=== PATIENT | male | born 1960 | race Caucasian/White ===

== ENCOUNTER 2019-10-23 20:31 | Observation (INO) | payer OTHER ==
--- NOTE | 2019-10-23 20:43 | PDOC ---
History of Present Illness - General Chief Complaint: Pain, Acute Stated Complaint: PAIN History Source: Patient Exam Limitations: No Limitations - History of Present Illness Initial Comments: 10/23/19 20:42 Ashwin Barboza is a 59M with PMH HTN presenting with left groin pain. Patient was at home resting in bed when he suddenly had an acute onset pain in his left groin that is exacerbated by movement of his leg. Worse overnight, constant into today. Went to urgent care, given Flexeril and Aleve, did not improve symptoms. Denies recent trauma, bone problems, numbness/tingling, or weakness of the leg, but does not want to move it because of the pain. Right leg unaffected, denies lower back pain. Has never had problem like this before. Denies osteoporosis or arthritis. No prior injury or surgeries. Denies fever/chills/nausea/vomiting/diarrhea. No chest pain, SOB, palpitations, abd pain, urinary symptoms. Only PMH is HLD on a statin. Denies alcohol/drugs/tobacco. Past History - Medical History Allergies/Adverse Reactions: Allergies Allergy/AdvReac Type Severity Reaction Status Date / Time No Known Allergies Allergy Verified 10/23/19 20:42 Review of Systems - Review of Systems Able to Perform ROS?: Yes Constitutional: No: Symptoms Reported HEENTM: No: Symptoms Reported Respiratory: No: Symptoms reported Cardiac (ROS): No: Symptoms Reported ABD/GI: No: Symptoms Reported : No: Symptoms Reported Musculoskeletal: Yes: Joint Pain Integumentary: No: Symptoms Reported Neurological: No: Symptoms reported Endocrine: No: Symptoms Reported Hematologic/Lymphatic: No: Symptoms Reported All Other Systems: Reviewed and Negative *Physical Exam - Physical Exam General Appearance: Yes: Nourished, Appropriately Dressed, Thin, Other (in NAD). No: Apparent Distress HEENT: positive: EOMI, MEÑO, Normal Voice, Symmetrical, Pharynx Normal. negative: Scleral Icterus (R), Scleral Icterus (L), Pharyngeal Erythema, Tonsillar Exudate, Tonsillar Erythema Neck: positive: Trachea midline, Supple. negative: Tender, Rigid, Lymphadenopathy (R), Lymphadenopathy (L), Tender lateral, Tender midline Respiratory/Chest: positive: Lungs Clear, Normal Breath Sounds. negative: Chest Tender, Respiratory Distress, Accessory Muscle Use, Crackles, Rales, Rhonchi, Stridor, Wheezing Cardiovascular: positive: Regular Rhythm, Regular Rate. negative: Murmur Gastrointestinal/Abdominal: positive: Normal Bowel Sounds, Flat, Soft. negative: Tender, Organomegaly, Pulsatile Mass, Protuberent, Distended, Guarding, Rebound, Hernia Male Genitalia: positive: normal genitalia. negative: discharge, testicular tenderness, testicular mass, inguinal hernia, hernia, CVAT Musculoskeletal: positive: Normal Inspection. negative: CVA Tenderness, CVA Tenderness (R), CVA Tenderness (L) Extremity: positive: Normal Capillary Refill, Normal Inspection, Normal Range of Motion, Pelvis Stable. negative: Tender, Delayed Capillary Refill, Pedal Edema, Swelling, Inflammation Integumentary: positive: Normal Color, Dry, Warm Neurologic: positive: coupon manifest clerk II-XII NML intact, Fully Oriented, Alert, Normal Mood/Affect, Normal Response, Other (RLE neurovascular intact. LLE 5/5 motor to ankle/knee, no loss of sensation to light touch, pain with passive flexion at hip, unable to lift at left hip 2/2 pain, pulses intact.). negative: Motor Strength 5/5, Numbness, Sensory Deficit ED Treatment Course - LABORATORY CBC & Chemistry Diagram: 10/23/19 21:22 10/23/19 21:22 Medical Decision Making - Medical Decision Making 10/23/19 21:44 Patient presents with acute onset L hip/groin pain without trauma or risk factors for AVN or osteonecrosis. Also reports mild hand pain prior that has resolved, possibly sign of rheum disorder. Ddx includes hip fx, osteonecrosis, AVN. Getting XR left hip/pelvis/lumbar for evaluation. Getting labs for evaluation of possible metabolic/rheum disturbance including CBC/CMP/ESR/CRP/Lyme/UA/UC. ECG shows NSR with HR 94, QTc 410, no DAMIAN/D or TWI. 10/23/19 21:52 Labs notable for: - WBC 12.8 - ESR 25 - CRP 6.9 - CMP WNL - UA clean 10/23/19 22:17 Labs WNL, slightly elevated inflammatory markers. XR unremarkable. Giving Toradol for pain control and will re-evaluate. 10/23/19 22:57 Pain not improved at all. Scrotal exam unremarkable. Ordering CTA AP with BLE runoff for examination of vascular cause of hip pain and evaluation of the left hip and tibia. 10/24/19 01:57 CT angiography of the abdomen and pelvis: The abdominal aorta is patent. Negative for abdominal aortic aneurysm or di ssection. Atherosclerotic changes with mural plaque seen in the distal aorta. The major visceral vessels emanating from the abdominal aorta appear patent. The bilateral common iliac arteries are patent. However, there are atherosclerotic changes as well as chronic appearing bilateral common iliac artery dissections. The bilateral external iliac arteries are patent. Note made of an L3-4 disc protrusion. Right lower extremity: Right common femoral artery is patent with mild atherosclerotic changes., The superficial femoral artery, and popliteal artery are patent without stenosis occlusion dissection or aneurysm. Peroneal and posterior tibial runoff are identified. The anterior tibial artery appears to be occluded in its midportion. Therefore, there is poor visualization of the right dorsalis pedis. Left lower extremity: Left common femoral artery is patent with mild atherosclerotic changes. Left superficial femoral artery and popliteal artery are also patent without stenosis occlusion dissection or aneurysm. 2 vessel runoff via the peroneal and anterior tibial artery are noted. The posterior tibial artery appears to be occluded in its midportion. Left lobe liver cysts noted. Osseous structures are intact. 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 Discussed case with Dr. Concepcion with Imaging physician relations manager. Patient still having too much pain to walk despite Toradol and acetaminophen. Patient needs further evaluation for hip pain and likely physical therapy for bursitis vs. MSK pathology. Contacting PMD Dr. Zoya Nguyen for admission. 10/24/19 02:[address] Valenzuela for admission to Med/Surg under Dr. Zoya Nguyen. Pending admission at this time. Discharge - Discharge Information Problems reviewed: Yes Clinical Impression/Diagnosis: Acute pain of left hip Condition: Fair - Admission Yes - Follow up/Referral Referrals: Zoya Nguyen MD [Primary Care Provider] - - Patient Discharge Instructions - Post Discharge Activity
[2019-10-23] MEDS ORDERED: ACETAMINOPHEN 325 MG TABLET (FP) PO ONE (20:56)
[2019-10-23] MEDS ORDERED: ACETAMINOPHEN 325 MG TABLET (FP) ONE (21:06)
[2019-10-23 21:39] LABS: BASO % 0.3 % (0-2.0); EOS % 0.6 % (0-4.5); HEMATOCRIT 43.1 % (35.4-49); HEMOGLOBIN 14.1 GM/dL (11.7-16.9); LYMPH % 19.6 % (8-40); MCH 27.2 pg (25.7-33.7); MCHC 32.7 g/dl (32.0-35.9); MEAN CELL VOLUME 83.3 fl (80-96); MEAN PLT VOLUME 9.1 fl (7.5-11.1); MONO % 12.2 % (3.8-10.2); NEUT % 67.3 % (42.8-82.8); PLATELET COUNT 268 K/MM3 (134-434); RBC 5.17 M/mm3 (4.00-5.60); RDW 14.1 % (11.9-15.9); WHITE BLOOD COUNT 12.8 K/mm3 (4.0-10.0)
[2019-10-23 22:01] LABS: PH,URINE 7.5 (5.0-8.0); URINE APPEARANCE CLEAR; URINE BILIRUBIN NEGATIVE (NEGATIVE); URINE COLOR YELLOW; URINE GLUCOSE (UA) NEGATIVE (NEGATIVE); URINE KETONE NEGATIVE (NEGATIVE); URINE LEUK ESTERASE NEGATIVE (NEGATIVE); URINE NITRITE NEGATIVE (NEGATIVE); URINE PROTEIN NEGATIVE (NEGATIVE); URINE UROBILINOGEN 0.2 mg/dL (0.2-1.0)
--- NOTE | 2019-10-23 22:07 | PDOC ---
Documentation entered by Jody Chávez SCRIBE, acting as scribe for Karoline Cerno DO. Karoline Ceron DO: This documentation has been prepared by the kylahibe, Jody Chávez SCRIBE, under my direction and personally reviewed by me in its entirety. I confirm that the documentation accurately reflects all work, treatment, procedures, and medical decision making performed by me. Attending Attestation - Resident Resident Name: Richard Dickinson - ED Attending Attestation I have performed the following: I have examined & evaluated the patient, The case was reviewed & discussed with the resident, I agree w/resident's findings & plan, Exceptions are as noted - HPI HPI: 10/23/19 21:23 The patient is a 59-year-old male with a past medical history significant for HLD who presents to the emergency department via EMS with left hip pain since 10:00 pm yesterday. The patient reports yesterday around 10:00 pm he had an acute onset of stabbing, left hip pain that is aggravated with the movement of the hip. The patient reports following up at urgent care this morning for the pain was prescribed Flexeril and Aleve, no imaging was done. The patient reports taking Flexeril, without relief. Denies numbness or tingling. Denies recent fall, trauma, or injury to the hip, back, or legs. Denies back pain. Denies recent bug bite or tick bite. Denies having any pets at home. Denies chest pain, fever, chills, shortness of breath, abdominal pain. Denies prior similar pain. - Physicial Exam PE: 10/23/19 21:24 Constitutional: Awake, alert, oriented. No acute distress. Head: Normocephalic. Atraumatic Eyes: PERRL. EOMI. Conjunctivae are not pale. ENT: Mucous membranes are moist and intact. Posterior pharynx without exudate or erythema. Uvula midline. Neck: Supple. Full ROM. No lymphadenopathy. Cardiovascular: Regular rate. Regular rhythm. +tachycardic, S1, S2 regular. Distal pulses are 2+ and symmetric. Pulmonary/Chest: No evidence of respiratory distress. Clear to auscultation bilaterally No wheezing, rales or rhonchi. Abdominal: Soft and nondistended. There is no tenderness. No rebound, guarding or rigidity. Good bowel sounds. Back: No C, T, or L spine tenderness, No paraspinal tenderness. No CVA tenderness. Musculoskeletal: +acute left hip pain with active and passive range of motion. No tenderness to the hip itself, only pain with movement. No leg edema. No cyanosis. No clubbing. Full range of motion in all other extremities. No calf tenderness. Radial/pedal pulses are intact and 2+ bilaterally Skin: Skin is warm and dry. No petechiae. No purpura. Neurological: Alert and oriented to person, place, and time. Cranial nerves II-XII are grossly intact. Normal speech. Psychiatric: Good eye contact. Normal interaction, affect and behavior. - Medical Decision Making 10/23/19 21:49 a/p: 59yo male with L hip pain -no trauma -pain with passive and active rom -no pain with palpation of the joint, no warmth, redness, ttp, only pain with ROM -no rashes -will send labs, xrays -pt unable to ambulate -will medicate for pain -will monitor and reassess 10/23/19 22:37 pt still with pain will add toradol xrays without acute fx on wet read labs reviewed, elevated esr/crp 10/23/19 22:50 pt still with pain despite toradol pt denies scrotal pain still with acute L hip pain pt with acute L hip and groin pain will send for cta 10/24/19 01:35 pt pending cta, but will need admission for inability to ambulate and L hip pain Heart Score/ECG Review - ECG Intrepretation Comment:: 10/23/19 22:06 sinus at 94, nl axis, nl interval, no acute st/t wave findings Discharge - Discharge Information Problems reviewed: Yes Clinical Impression/Diagnosis: Acute pain of left hip Condition: Fair - Admission Yes - Follow up/Referral Referrals: Zoya Nguyen MD [Primary Care Provider] - - Patient Discharge Instructions - Post Discharge Activity
[2019-10-23 22:09] LABS: ALBUMIN 3.7 g/dl (3.4-5.0); BLOOD UREA NITROGEN 11.4 mg/dL (7-18); CALCIUM 8.5 mg/dL (8.5-10.1); CREATININE 1.3 mg/dL (0.55-1.3); TOT PROT 7.2 g/dl (6.4-8.2)
[2019-10-23] MEDS ORDERED: KETOROLAC TROMETHAMINE 30 MG/1 ML VIAL IVPUSH ONE (22:13)
[2019-10-23] MEDS ORDERED: KETOROLAC TROMETHAMINE 30 MG/1 ML VIAL ONE (22:14)
[2019-10-23 22:17] LABS: BILIRUBIN,TOTAL 0.6 mg/dL (0.2-1)
[2019-10-23 22:30] LABS: ERYTHROCYTE SEDIMENTATION RATE 25 mm/hr (0-20)
--- NOTE | 2019-10-24 09:23 | EKG ---
Test Reason : Blood Pressure : / mmHG Vent. Rate : 094 BPM Atrial Rate : 094 BPM P-R Int : 134 ms QRS Dur : 074 ms QT Int : 328 ms P-R-T Axes : 064 -08 047 degrees QTc Int : 410 ms NORMAL SINUS RHYTHM NORMAL ECG NO PREVIOUS ECGS AVAILABLE Confirmed by Rodrigo Cole MD ([id number]) on 10/24/2019 9:22:30 AM Referred By: Confirmed By:Rodrigo Cole MD
[2019-10-24] MEDS ORDERED: CYCLOBENZAPRINE HCL 10 MG TABLET (FP) PO PRN (09:44)
[2019-10-24] MEDS ORDERED: NAPROXEN 500 MG TABLET ONE (10:05)
[2019-10-24] MEDS ORDERED: CYCLOBENZAPRINE HCL 10 MG TABLET (FP) ONE (10:06)
[2019-10-24] MEDS ORDERED: PANTOPRAZOLE 40 MG TABLET ONE (10:08)
[2019-10-24] MEDS: NAPROXEN 500 MG TABLET PO SCH ×2 (10:12→21:30)
[2019-10-24] MEDS: PANTOPRAZOLE 20 MG TABLET PO SCH ×2 (10:12→21:30)
--- NOTE | 2019-10-24 10:55 | HP ---
DATE OF ADMISSION: 10/24/2019 HISTORY OF PRESENT ILLNESS: This is a 59-year-old [place] male known to me for some time known to have hyperlipidemia on atorvastatin, came to the emergency room last night with complaints of severe pain and difficulty in lifting left hip/left leg. He got Toradol injection this morning and is still complaining of severe pain left hip. His CT of the aorta: No aortic dissection. Some chronic changes noted in the aortofemoral area of the distal aorta. X-rays of the hip and lumbosacral spines are negative. SOCIAL HISTORY: with children. He is a smoker, smokes 2 to 3 cigarettes a day for many years. PHYSICAL EXAMINATION: Vital Signs: BP 122/80, pulse 110, temperature 97. HEENT: Unremarkable. Neck: Supple. No JVD. Lungs: Clear. Heart: S1, S2 normal. No S3, S4. Abdomen: Soft. Musculoskeletal: Legs: No edema. Range of motion of left hip is restricted. Leg raising test is positive on the left side. Right side is normal. LABORATORY REPORTS: WBC 12.8, hemoglobin 14.1, platelet 268. Chemistry: Electrolytes are normal. Blood sugar random 146. C-reactive protein is 6.9. Urine is negative. COVID result is pending. Lyme titer was done which is pending. X-ray of the lumbar spine was negative. IMPRESSION: 1. Sciatica back pain. 2. Hyperlipidemia. PLAN: Admit to the hospital. Bedrest. Orthopedic consult, Dr. Briceño. Will give him analgesics and muscle relaxant. Will evaluate. Dorothy [id number]
[2019-10-24 11:47] VITALS: BMI 20.9
--- NOTE | 2019-10-24 12:13 | CONSULT ---
- Consultation REQUESTING PROVIDER: CONSULT REQUEST: We have been asked to surgically evaluate this patient for left hip/groin pain. PCP:Zoya Nguyen HISTORY OF PRESENT ILLNESS: 59 yo male with a history of Hyperlipidemia and smoking. 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 The pain began abruptly after getting up from this position. He denies any h/o previous pain like this or back pain. He denies any masses to the groin. No dysuria, moving his bowels without difficulty. No fevers. No complaints of numbness or tingling to his LE b/l. No pain to LE with ambulation/rest. Left groin pain increased with ambulation. The pain has improved since admission after taking NSAIDs and was able to ambulate from chair to bed. No h/o diabetes. History taken via the intrepter phone #[phone]. PMHx: Hyperlipidemia PSHx: denies Social HX: smokes 2 to 3 cigarettes per day for 20 years Allergies Allergy/AdvReac Type Severity Reaction Status Date / Time No Known Allergies Allergy Verified 10/23/19 20:42 REVIEW OF SYSTEMS: CONSTITUTIONAL: Absent: fever, chills NEUROLOGIC: Absent: paresthesias, tingling to Left lower ext PHYSICAL EXAM: GENERAL: Awake, alert, and fully oriented, in no acute distress. LUNGS: Clear to auscultation bilat anteriorly. HEART: Regular rate and rhythm. ABDOMEN: Soft, nontender, not distended, normoactive bowel sounds, no guarding, no rebound, no masses. No masses to the groin. LOWER EXTREMITIES: RLE 2+ DP/PT pulses, warm, well-perfused. No calf tenderness. No peripheral edema. LLE: +2 DP pulse(palpable) +1 PT with doppler. Warm, well- perfused. No calf tenderness or peripheral edema. +2 femoral/popliteal pulses b/l. BACK: No midline/paraspinal tenderness NEUROLOGICAL: Normal speech, gait not observed. PSYCH: Cooperative. Good eye contact. Appropriate mood and affect. Vital Signs Temperature 98.6 F 10/24/19 11:38 Pulse Rate 73 10/24/19 11:38 Respiratory Rate 16 10/24/19 11:38 Blood Pressure 136/73 10/24/19 11:38 O2 Sat by Pulse Oximetry (%) 100 10/24/19 11:38 Lab Results WBC 12.8 K/mm3 (4.0-10.0) H 10/23/19 21:22 RBC 5.17 M/mm3 (4.00-5.60) 10/23/19 21:22 Hgb 14.1 GM/dL (11.7-16.9) 10/23/19 21:22 Hct 43.1 % (35.4-49) 10/23/19 21:22 MCV 83.3 fl (80-96) 10/23/19 21:22 MCHC 32.7 g/dl (32.0-35.9) 10/23/19 21:22 RDW 14.1 % (11.9-15.9) 10/23/19 21:22 Plt Count 268 K/MM3 (134-434) 10/23/19 21:22 Sodium 136 mmol/L (136-145) 10/23/19 21:22 Potassium 4.0 mmol/L (3.5-5.1) 10/23/19 21:22 Chloride 104 mmol/L (98-107) 10/23/19 21:22 Carbon Dioxide 23 mmol/L (21-32) 10/23/19 21:22 Anion Gap 9 MMOL/L (8-16) 10/23/19 21:22 BUN 11.4 mg/dL (7-18) 10/23/19 21:22 Creatinine 1.3 mg/dL (0.55-1.3) 10/23/19 21:22 Random Glucose 146 mg/dL (74-106) H 10/23/19 21:22 Calcium 8.5 mg/dL (8.5-10.1) 10/23/19 21:22 Left hips xray: no actue pathology Lumbar back xray: no acute pathology CT scan with IV Contrast: normal abd aorta. RLE-chronic iliac artery dissection. Patent femoral/deep femoral/SFA artery. patent trifurcation proximally. AT patent to mid-portion. peroneal to ankle and posterior tibial artery patent LLE-common femoral/deep artery patent. Trifurcation patent. Peroneal and posterior tibial artery patent to distal calf. Anterior tibial artery-patent Problem List - Problems (1) Left groin pain Assessment/Plan: Pt without any evidence of acute periperal vascular ischemia. His groin pain appears to be related to possible strain injury. His CTA reveals some distal disease to his left foot which is also evidence with his physical exam, diminished PT pulses. No evidence of ischemia/claudication/or wounds. He does smoke 2 to 3 cigarettes daily for many years Recommend smoking cessation F/u as needed for any vascular needs with Ciarra Wells in his office Pain management as per the primary team D/w Dr. Wells and he agrees with the above treatment plan. Problems reviewed: Yes Code(s): R10.32 - LEFT LOWER QUADRANT PAIN
[2019-10-24] MEDS: CYCLOBENZAPRINE HCL 10 MG TABLET (FP) PO PRN (17:54)
[2019-10-24] MEDS ORDERED: PT OWN MED DRAWER 7, Y5N ONE (20:50)
[2019-10-25] MEDS ORDERED: PT OWN MED DRAWER 7, Y5N ONE (09:01)
[2019-10-25] MEDS: NAPROXEN 500 MG TABLET PO SCH (09:02)
[2019-10-25] MEDS: PANTOPRAZOLE 20 MG TABLET PO SCH (09:03)
--- NOTE | 2019-10-25 09:25 | PN ---
Progress Note, Physician Chief Complaint: Lt hip pain History of Present Illness: Dr Camp vascular surgery consult appreciated CT LS spine no disc herniations or nerve compressions Mild DJD present - Current Medication List Current Medications: Active Medications Cyclobenzaprine HCl (Flexeril -) 10 mg PO BID PRN PRN Reason: MUSCLE SPASM Last Admin: 10/24/19 17:54 Dose: 10 mg Documented by: Naproxen (Naprosyn -) 500 mg PO BID [facility] Last Admin: 10/25/19 09:02 Dose: 500 mg Documented by: Pantoprazole Sodium (Protonix -) 20 mg PO BID [facility] Last Admin: 10/25/19 09:03 Dose: 20 mg Documented by: - Objective Vital Signs: Vital Signs Temperature 97.8 F 10/25/19 06:00 Pulse Rate 74 10/25/19 06:00 Respiratory Rate 20 10/25/19 06:13 Blood Pressure 112/71 10/25/19 06:00 O2 Sat by Pulse Oximetry (%) 99 10/25/19 06:13 Constitutional: Yes: No Distress Eyes: Yes: WNL HENT: Yes: WNL, Tonsillar Exudate Cardiovascular: Yes: WNL Respiratory: Yes: WNL Gastrointestinal: Yes: Normal Bowel Sounds ...Rectal Exam: Yes: Deferred Musculoskeletal: Yes: Back Pain Integumentary: Yes: WNL ...Motor Strength: WNL Psychiatric: Yes: Alert Labs: CBC, BMP 10/23/19 21:22 10/23/19 21:22 - ....Imaging Cat Scan: Report Reviewed Assessment/Plan DC home Continue present trt Rest at home for few days Will see in the office in 1 week
[2019-10-25] MEDS: CYCLOBENZAPRINE HCL 10 MG TABLET (FP) PO PRN (10:29)
[2019-10-25 10:39] VITALS: BP 132/75; PULSE 82; TEMP 98.2
== END 2019-10-25 11:39 | disposition home or self-care (01) ==
LOC: JER 20:31 → INTOOBSV 10-24 02:13 → JERBED 10-24 02:13 → J7W 10-24 10:49
PROVIDERS: ADMIT Internal Medicine; ATTEND Internal Medicine
PROC: 3E033NZ Introduction of Analgesics, Hypnotics, Sedatives into Peripheral Vein, Percutaneous Approach (ICD-10-PCS; principal; 2019-10-24)
DX: M25.552 Pain in left hip (principal); E78.5 Hyperlipidemia, unspecified; I10 Essential (primary) hypertension; R00.0 Tachycardia, unspecified; Z72.0 Tobacco use
CPT/HCPCS: 36415; 71046-TC-FY; 72100-TC-FY; 72131-TC; 73523-TC-FY; 75635-TC; 80053; 81003; 82550; 85025; 85651; 86140; 86618; 87086; 93005; 93010; 96374; 99285-25; G0378; U0003

== ENCOUNTER 2023-05-18 17:12 | Inpatient (IN) | payer OTHER ==
[2023-05-18] MEDS ORDERED: ALBUTEROL SO4 2.5/IPRATROPIUM 0.5 INH SOL 3 ML VIAL.NEB. NEB ONE ×5 (17:46→21:42)
[2023-05-18] MEDS ORDERED: methylPREDNISolone NA SUCC 125 MG/2 ML VIAL ONE ×2 (18:06→18:08)
[2023-05-18] MEDS ORDERED: ACETAMINOPHEN INJECTION 100 ML IVPB ONE (18:06)
[2023-05-18] MEDS: ACETAMINOPHEN 1000 MG/100 ML BAG IVPB ONE (18:13)
[2023-05-18] MEDS: methylPREDNISolone NA SUCC 125 MG/2 ML VIAL IVPUSH ONE (18:22)
[2023-05-18 18:32] LABS: VENOUS BASE EXCESS -2.1 mmol/L (-2-2); VENOUS PCO2 46.9 mmHg (38-52); VENOUS PH 7.332 (7.310-7.410)
[2023-05-18 18:40] LABS: BASO % 0.3 % (0-2.0); EOS % 1.6 % (0-4.5); HEMATOCRIT 40.6 % (35.4-49); HEMOGLOBIN 12.9 GM/dL (11.7-16.9); LYMPH % 18.5 % (8-40); MCH 26.9 pg (25.7-33.7); MCHC 31.8 g/dl (32.0-35.9); MEAN CELL VOLUME 84.5 fl (80-96); MEAN PLT VOLUME 9.3 fl (7.5-11.1); MONO % 10.9 % (3.8-10.2); NEUT % 68.7 % (42.8-82.8); PLATELET COUNT 292 10^3/uL (134-434); RBC 4.81 M/mm3 (4.00-5.60); RDW 13.6 % (11.9-15.9)
[2023-05-18 18:43] LABS: INR 1.02 (0.83-1.09); PROTHROMBIN TIME (PATIENT) 11.8 SEC (9.7-13.0)
[2023-05-18 18:46] LABS: ACTIVATED PTT 26.7 SECONDS (25.2-36.5)
[2023-05-18 18:56] LABS: POTASSIUM 4.2 mmol/L (3.5-5.1)
[2023-05-18 18:57] LABS: CALCIUM 8.6 mg/dL (8.5-10.1)
[2023-05-18 18:59] LABS: BLOOD UREA NITROGEN 10.5 mg/dL (7-18); MAGNESIUM 2.2 mg/dL (1.8-2.4)
[2023-05-18 19:02] LABS: CREATININE 1.4 mg/dL (0.55-1.3); PHOSPHOROUS 2.1 mg/dL (2.5-4.9)
[2023-05-18 19:03] LABS: BILIRUBIN,TOTAL 0.5 mg/dL (0.2-1); TOT PROT 7.5 g/dl (6.4-8.2)
[2023-05-18] MEDS: LACTATED RINGERS SOLUTION 1000 ML INFUS.BAG IV ONE (19:14)
[2023-05-18] MEDS: ALBUTEROL SO4 2.5/IPRATROPIUM 0.5 INH SOL 3 ML VIAL.NEB. NEB SCH (21:39)
[2023-05-19] MEDS ORDERED: methylPREDNISolone NA SUCC 40 MG/1 ML VIAL ONE ×2 (01:10→09:48)
[2023-05-19] MEDS ORDERED: ALBUTEROL SO4 2.5/IPRATROPIUM 0.5 INH SOL 3 ML VIAL.NEB. NEB ONE ×4 (01:10→11:51)
[2023-05-19] MEDS: methylPREDNISolone NA SUCC 40 MG/1 ML VIAL IVPUSH SCH (01:24)
[2023-05-19] MEDS: ALBUTEROL SO4 2.5/IPRATROPIUM 0.5 INH SOL 3 ML VIAL.NEB. NEB SCH (01:24)
[2023-05-19] MEDS: BUDESONIDE/FORMETEROL FUMARATE 160/4.5 mcg INHALER IH SCH (01:24)
[2023-05-19] MEDS: SODIUM CHLORIDE 1,000 ML IV SCH ×2 (05:20→10:01)
[2023-05-19 05:21] LABS: PH,URINE 5.5 (5.0-8.0); URINE APPEARANCE CLEAR; URINE BILIRUBIN NEGATIVE (NEGATIVE); URINE COLOR YELLOW; URINE GLUCOSE (UA) 3+ (NEGATIVE); URINE KETONE TRACE (NEGATIVE); URINE LEUK ESTERASE NEGATIVE (NEGATIVE); URINE NITRITE NEGATIVE (NEGATIVE); URINE PROTEIN NEGATIVE (NEGATIVE); URINE UROBILINOGEN 0.2 mg/dL (0.2-1.0)
[2023-05-19 07:55] LABS: BASO % 0.2 % (0-2.0); LYMPH % 13.5 % (8-40); MCH 28.2 pg (25.7-33.7); MCHC 33.4 g/dl (32.0-35.9); MEAN CELL VOLUME 84.5 fl (80-96); MEAN PLT VOLUME 9.2 fl (7.5-11.1); MONO % 3.7 % (3.8-10.2); NEUT % 82.6 % (42.8-82.8); PLATELET COUNT 272 10^3/uL (134-434); RBC 4.26 M/mm3 (4.00-5.60); RDW 13.3 % (11.9-15.9); WHITE BLOOD COUNT 9.6 K/mm3 (4.0-10.0)
[2023-05-19 08:24] LABS: LACTIC ACID 6.3 mmol/L (0.4-2.0)
[2023-05-19 08:31] LABS: CHOLESTEROL 150 mg/dL (50-200)
[2023-05-19 08:32] LABS: ALBUMIN 2.8 g/dl (3.4-5.0); BLOOD UREA NITROGEN 13.3 mg/dL (7-18); CALCIUM 8.7 mg/dL (8.5-10.1); LDL CHOLESTEROL (ONLY SJRH) 96 mg/dL (5-100)
[2023-05-19 08:33] LABS: MAGNESIUM 2.2 mg/dL (1.8-2.4)
[2023-05-19 08:34] LABS: CREATININE 1.4 mg/dL (0.55-1.3); HDL CHOLESTEROL 35 mg/dL (40-60); PHOSPHOROUS 2.7 mg/dL (2.5-4.9)
[2023-05-19 08:36] LABS: BILIRUBIN,TOTAL 0.5 mg/dL (0.2-1); TOT PROT 7.2 g/dl (6.4-8.2)
[2023-05-19] MEDS: INSULIN ASPART SLIDING SCALE (NOVOLOG) 1 VIAL SQ SCH (08:37)
[2023-05-19] MEDS: SODIUM CHLORIDE 1,000 ML IV STA (08:45)
[2023-05-19] MEDS ORDERED: AZITHROMYCIN IVPB 500 MG/250 ML BAG IVPB ONE (09:50)
[2023-05-19] MEDS: AZITHROMYCIN IVPB 500 MG/250 ML BAG IVPB SCH (10:01)
[2023-05-19] MEDS ORDERED: ENOXAPARIN NA (PORCINE) 40 MG/0.4 ML DISP.SYRIN SQ ONE (10:15)
[2023-05-19] MEDS ORDERED: ACETYLCYSTEINE 20% 200MG/ML 4 ML VIAL *FOR ORAL / INH USE ONLY ONE (10:15)
[2023-05-19] MEDS ORDERED: CEFTRIAXONE 1 GM/50 ML BAG ONE (10:16)
[2023-05-19] MEDS: ENOXAPARIN NA (PORCINE) 40 MG/0.4 ML DISP.SYRIN SQ SCH (10:27)
[2023-05-19] MEDS: CEFTRIAXONE 1 GM in DEXTROSE 5%-WATER - 50 ML IVPB SCH (10:27)
[2023-05-19] MEDS: ACETYLCYSTEINE 20% 200MG/ML 4 ML VIAL *FOR ORAL / INH USE ONLY NEB SCH (10:27)
[2023-05-19] MEDS: ALBUTEROL SO4 0.083% IH SOL 2.5 MG/3 ML VIAL.NEB. NEB SCH (10:33)
[2023-05-19 17:41] VITALS: BMI 22.4
[2023-05-19 19:02] LABS: LACTIC ACID 2.5 mmol/L (0.4-2.0)
[2023-05-20 08:56] LABS: HEMATOCRIT 34.9 % (35.4-49); HEMOGLOBIN 11.2 GM/dL (11.7-16.9); MCH 26.6 pg (25.7-33.7); MCHC 31.9 g/dl (32.0-35.9); MEAN CELL VOLUME 83.2 fl (80-96); MEAN PLT VOLUME 8.8 fl (7.5-11.1); PLATELET COUNT 308 10^3/uL (134-434); RDW 13.7 % (11.9-15.9); WHITE BLOOD COUNT 21.1 K/mm3 (4.0-10.0)
[2023-05-20] MEDS: predniSONE 20 MG TABLET (UD) PO SCH (09:23)
[2023-05-20 09:25] LABS: ALBUMIN 2.6 g/dl (3.4-5.0); BLOOD UREA NITROGEN 16.9 mg/dL (7-18); CALCIUM 8.9 mg/dL (8.5-10.1)
[2023-05-20 09:26] LABS: MAGNESIUM 2.4 mg/dL (1.8-2.4)
[2023-05-20 09:29] LABS: BILIRUBIN,TOTAL 0.3 mg/dL (0.2-1); PHOSPHOROUS 2.8 mg/dL (2.5-4.9); TOT PROT 6.3 g/dl (6.4-8.2)
[2023-05-20] MEDS: ALBUTEROL SO4 0.083% IH SOL 2.5 MG/3 ML VIAL.NEB. NEB SCH (16:07)
[2023-05-20] MEDS: ATORVASTATIN CA 80 MG TABLET (FP) PO SCH (21:02)
[2023-05-21 09:13] LABS: HEMATOCRIT 37.1 % (35.4-49); HEMOGLOBIN 12.1 GM/dL (11.7-16.9); MCHC 32.5 g/dl (32.0-35.9); MEAN CELL VOLUME 82.9 fl (80-96); MEAN PLT VOLUME 8.8 fl (7.5-11.1); PLATELET COUNT 360 10^3/uL (134-434); RBC 4.48 M/mm3 (4.00-5.60); RDW 13.7 % (11.9-15.9); WHITE BLOOD COUNT 16.9 K/mm3 (4.0-10.0)
[2023-05-21 09:26] LABS: POTASSIUM 3.9 mmol/L (3.5-5.1)
[2023-05-21 09:29] LABS: ALBUMIN 2.7 g/dl (3.4-5.0); BLOOD UREA NITROGEN 20.2 mg/dL (7-18); MAGNESIUM 2.2 mg/dL (1.8-2.4)
[2023-05-21 09:32] LABS: CREATININE 1.1 mg/dL (0.55-1.3); PHOSPHOROUS 3.4 mg/dL (2.5-4.9)
[2023-05-21 09:34] LABS: BILIRUBIN,TOTAL 0.4 mg/dL (0.2-1); TOT PROT 6.7 g/dl (6.4-8.2)
[2023-05-21] MEDS: ACETAMINOPHEN 325 MG TABLET (FP) PO PRN (10:37)
[2023-05-21 14:12] VITALS: BP 120/80; PULSE 111; RESP 20; TEMP 97.9
== END 2023-05-21 13:47 | disposition home or self-care (01) | DRG 720 ==
LOC: JER 17:12 → JERBED 20:04 → J5S 05-19 15:50
PROVIDERS: ADMIT Internal Medicine; ATTEND Internal Medicine
DX: A41.89 Other specified sepsis (principal); J44.1 Chronic obstructive pulmonary disease with (acute) exacerbation; R65.20 Severe sepsis without septic shock; J18.9 Pneumonia, unspecified organism; J44.0 Chronic obstructive pulmonary disease with (acute) lower respiratory infection; I10 Essential (primary) hypertension; E78.5 Hyperlipidemia, unspecified; F17.210 Nicotine dependence, cigarettes, uncomplicated; R00.0 Tachycardia, unspecified; J98.11 Atelectasis; E87.20 Acidosis, unspecified; E11.65 Type 2 diabetes mellitus with hyperglycemia
CPT/HCPCS: 0241U-QW; 36415; 71045-TC-FY; 71250-TC; 80053; 80061; 81003; 82803; 82962; 83036; 83605; 83735; 83880; 84100; 84484; 85025; 85027; 85610; 85730; 86850; 86900; 86901; 87040; 87070; 87077; 87205; 87899; 93005; 93010; 93306-TC; 94640; 94761; 99291; J0131